=== PATIENT | female | born 1950 | race Caucasian/White ===

== ENCOUNTER → 2020-05-11 | Outpatient (CLI) | payer OTHER ==
[~2020-05-11] MED LIST: CELECOXIB200 MG PO; LEVOTHYROXINE50 MCG PO; OLMESARTAN MEDO40 MG PO; ROSUVASTATIN CA20 MG PO; VITAMIN D3100 MCG PO
== END ==
LOC: LAB 08:13
PROVIDERS: ATTEND Orthopaedic Surgery
DX: Z01.812 Encounter for preprocedural laboratory examination (principal); Z20.822 Contact with and (suspected) exposure to COVID-19

== ENCOUNTER 2020-05-14 09:02 | Day surgery (SDC) | payer OTHER ==
[~2020-05-14] VITALS: Ht 152.4 cm; Wt 66.2 kg
--- NOTE | ~2020-05-14 | O ---
[facility] [place] [address] OPERATIVE REPORT Name: RUSTY SADLER Room #: DEP [facility] Jaquelin#: [id number] Admission: 05/14/20 Attend Phys: Jesus Jones MD Discharge: 05/14/20 Date of : 54 Report #: [id number] THIS REPORT FOR: cc: Physician not on staff Physician not on staff Jesus Jones MD ~ DATE OF SERVICE: 05/14/2020 PREOPERATIVE DIAGNOSIS: Right knee medial meniscus tear. POSTOPERATIVE DIAGNOSES: 1. Right knee medial meniscus tear. 2. Grade 3 chondromalacia medial femoral condyle. 3. Grade 4 chondromalacia, trochlear groove. PROCEDURE: Right knee arthroscopy with partial medial meniscectomy. SURGEON: Jesus Jones MD FOOD AND BEVERAGE LEAD: None. ANESTHESIA: LMA. TOURNIQUET TIME: 15 minutes. COMPLICATIONS: None. SPECIMENS: None. CONDITION UPON LEAVING THE OPERATING ROOM: Stable. INDICATIONS FOR PROCEDURE: The patient is a 69-year-old female with medial-sided knee pain. She has had an MRI scan shown to have a tear of her medial meniscus. After discussion with her, she elected for right knee arthroscopy with partial medial meniscectomy and debridement as needed. DESCRIPTION OF PROCEDURE: Risks, benefits, alternatives, and complications were discussed in detail with the patient including but not limited to risk of anesthesia, risk of damage to nerves, arteries, blood vessels, risk for infection, bleeding, risk for continued knee pain, need for reoperation. Informed consent was obtained from the patient. Right knee was appropriately [facility] [address] [place] [address] OPERATIVE REPORT Name: RUSTY SADLER Room #: DEP [facility] Jaquelin#: [id number] Admission: 05/14/20 Attend Phys: Jesus Jones MD Discharge: 05/14/20 Date of : 54 Report #: [id number] marked in the preoperative holding area. The Ancef was given for preoperative antibiotics. ____. By: [id number] [id number] Jesus Jones MD /nt
[2020-05-14 09:46] VITALS: BP 140/86
--- NOTE | 2020-05-14 10:32 | EKG ---
[address] [address] ELECTROCARDIOGRAM REPORT Name: RUSTY SADLER Room #: 150-4 [facility] M..#: [id number] Admission: 05/14/20 Attend Phys: Jesus Jones MD Discharge: Date of : 54 Report #: [id number] [facility] Test Date: 2020-05-14 Test Time: 09:44:54 Pat Name: RUSTY SADLER Department: Room: 150 4 Gender: F Materials Handling Equipment Operator: UNIQUE : 1950 Requested By: Corinna Quigley Order Number: [id number] : Kris Payne Measurements Intervals [place] Rate: 73 P: 84 OR: 173 QRS: 44 QRSD: 88 T: 13 QT: 384 QTc: 424 Interpretive Statements Sinus rhythm No previous ECG available for comparison Electronically Signed On 05-14-2020 10:32:43 [employer] ARCHITECT by Kris Payne [email or web address] <ELECTRONICALLY SIGNED> By: Kris Payne MD, [facility] 05/14/20 1032 0944 0944 Kris Payne MD, FACC /EPI
[2020-05-14] MEDS ORDERED: NORCO5 PO (12:15)
[2020-05-14 12:42] VITALS: BP 140/86
== END 2020-05-14 13:50 | disposition home or self-care (01) ==
LOC: OR 09:02 → TBA 09:02 → OR 09:31
PROVIDERS: ATTEND Orthopaedic Surgery
DX: M25.561 Pain in right knee (principal); M23.303 Other meniscus derangements, unspecified medial meniscus, right knee; M94.261 Chondromalacia, right knee; M17.11 Unilateral primary osteoarthritis, right knee; I10 Essential (primary) hypertension; E78.5 Hyperlipidemia, unspecified; E03.9 Hypothyroidism, unspecified; Z98.890 Other specified postprocedural states; Z79.899 Other long term (current) drug therapy; Z90.710 Acquired absence of both cervix and uterus; Z85.828 Personal history of other malignant neoplasm of skin
CPT/HCPCS: 50010; 50101; 50405; 56526; 57103; 57180; 62110; 62900; 70005